=== PATIENT | female | born 1980 | race Two or more races ===

== ENCOUNTER 2018-11-01 18:00 | Emergency (ER) | payer MEDICARE, MEDICAID ==
--- NOTE | 2018-11-01 20:23 | ED Physician Chart ---
ED Chief Complaint/HPI - Patient Information Date Seen:: 11/01/18 Time Seen:: 20:18 Chief Complaint:: tingling hands History of Present Illness:: 38 yr old female with hx of repeat spinal surgery for scoliosis 3 mos ago at [facility] here with some tingling carrie face has hx of trigeminal neulagia no new weakness or numness moving face well no dysphagia or dysarthria Allergies:: Allergies Allergy/AdvReac Type Severity Reaction Status Date / Time No Known Allergies Allergy Verified 11/01/18 18:08 Vitals:: Vital Signs - 8 hr 11/01/18 11/01/18 18:23 19:32 Temp 98.9 F 98.3 F HR 103 96 RR 22 20 BP 109/66 109/66 O2 Sat % 98 98 ED Review of Systems - Review of Systems General/Constitutional: No fever Skin: No skin lesions Head: No headache ENT: No earache Neck: Neck pain Cardio Vascular: No chest pain Pulmonary: No SOB GI: No vomiting, No diarrhea G/U: No dysuria Musculoskeletal: Back pain, Muscle pain Endocrine: No polyuria ED Past Medical History - Past Medical History Past Medical History: Other (neualgia scoliosis ) Surgical History: other (maxine rods at age 15 and now new spinal rods and clips ) Family Medical History - Family Member Mother History Unknown: Yes ED Septic Shock - . Is Septic Shock (SBP<90, OR Lactate>4 mmol\L) present?: No - <6hrs of presentation: Vital Signs: Vital Signs - 8 hr 11/01/18 11/01/18 18:23 19:32 Temp 98.9 F 98.3 F HR 103 96 RR 22 20 BP 109/66 109/66 O2 Sat % 98 98 ED Reassessment (Disposition) - Reassessment Reassessment:: spinal rods tingling hx of epidurals Reassessment Condition:: Unchanged - Aftercare/Follow up Instructions Aftercare/Follow-Up Instructions:: Counseled pt regarding lab results/diagnosis & need follow up - Patient Disposition Discharge/Transfer:: Home Condition at Disposition:: Stable
[2018-11-01] MEDS ORDERED: Morphine Sulfate 4 mg/mL 1mL Syr ONE (20:29)
[2018-11-01] MEDS: Morphine Sulfate 4 mg/mL 1mL Syr IM STA (20:39)
== END 2018-11-01 21:16 | disposition home or self-care (01) ==
LOC: ER 18:00
DX: R20.2 Paresthesia of skin (principal)
CPT/HCPCS: Z7502